=== PATIENT | male | born 1995 | race Caucasian/White ===

== ENCOUNTER 2024-08-02 15:31 | Inpatient (IN) ==
[2024-08-02] MEDS: SODIUM CHLORIDE 0.9% 1,000 ML IV ONE ×2 (16:10→16:59)
[2024-08-02 16:13] LABS: iSTAT Creatinine 3.2 mg/dl (0.6-1.3); iSTAT Hemoglobin 12.6 g/dl (14.0-18.0); iSTAT Ionized Calcium 1.23 mmol/l (1.12-1.32)
[2024-08-02 16:23] LABS: Basophils # (auto) 0.04 K/uL (0.00-0.20); Basophils % (auto) 0.5 %; Eosinophils # (auto) 0.35 K/uL (0.00-0.50); Eosinophils % (auto) 4.7 %; Hematocrit (blood only) 36.7 % (42.0-52.0); Hemoglobin 13.6 g/dl (14.0-18.0); Immature Granulocytes # (auto) 0.03 K/uL (0.01-0.20); Immature Granulocytes % (auto) 0.4 %; Lymphocytes # (auto) 2.33 K/uL (1.20-3.40); Lymphocytes % (auto) 31.4 %; Mean Corpuscular Hemoglobin 28.3 pg (25.0-34.0); Mean Corpuscular Hgb Conc 37.1 g/dL (32.0-36.0); Mean Corpuscular Volume 76.3 fL (80.0-100.0); Mean Platelet Volume 10.3 fL (9.4-12.4); Monocytes # (auto) 0.54 K/uL (0.11-0.59); Monocytes % (auto) 7.3 %; Neutrophils # (auto) 4.13 K/uL (1.40-6.50); Neutrophils % (auto) 55.7 %; Platelet Count 276 K/uL (130-400); RDW Coefficient of Variation 12.9 % (11.5-14.5); RDW Standard Deviation 34.6 fL (36.4-46.3); Red Blood Count 4.81 M/uL (4.70-6.10); White Blood Count 7.42 K/ul (4.8-10.8)
--- NOTE | 2024-08-02 16:29 | Emergency Department Note ---
Impression & Plan Flank Pain, Acute renal failure, Hypoglycemia ED Provider Note CHIEF COMPLAINT: Acute renal failure HISTORY OF PRESENTING ILLNESS: Patient is a 29-year-old male who presents to the emergency department today by referral from his PCP for acute renal failure. He states in February 2024 he was kicked in the left flank area by a horse. He was seen and evaluated here and sent to [place] with significant internal damage as well as multiple rib fractures. A few months ago he had a similar incident occur to the same flank area but had only been told he broke a few ribs again. Today he reports working outside for extended periods of time and lifting heavy in the heat. Patient does report eating a significant meal prior to coming to the ER that included chicken tenders, chips, and soda. He denies any current pain but does report feeling significantly unwell. He denies chest pain, sob, breathing difficulties, abdominal pain, headache, fevers/chills, blood in stool or urine, any recent illness, or any recent travel. REVIEW OF SYSTEMS: See HPI for pertinent positives and pertinent negatives. ALLERGIES: No known allergies MEDICATIONS: Amlodipine, labetalol PAST MEDICAL HISTORY: Hypertension, right kidney injury, GERD PHYSICAL EXAM: VITALS: Vitals are noted on the nurse's note and reviewed by myself. GENERAL: Non toxic, in no acute distress, non-diaphoretic. SKIN: Capillary refill <2 sec. NECK: Supple without nuchal rigidity. HEART: Regular rate and rhythm without murmurs gallops or rubs. LUNGS: Clear to auscultation bilaterally without wheezes, rales or rhonchi. No retractions or accessory muscle use. ABDOMEN: Bilateral flank pain present. Positive bowel sounds x 4. Normal tympanic percussion. Soft, nontender to palpation. No masses or hepatosplenomegaly. Estrada sign negative. No CVA tenderness. No guarding, rigidity, or rebound tenderness. No focal RLQ or LLQ tenderness. MUSCULOSKELETAL: No gross musculoskeletal defects. NEURO: Patient was alert and oriented. No focal neurological deficits. DIFFERENTIAL DIAGNOSIS: Acute kidney failure, chronic renal failure, kidney injury, among others. ED COURSE AND MEDICAL DECISION MAKING: HISTORY FROM INDEPENDENT HISTORIAN: History was provided by the patient and his significant other who is at bedside. MEDICATIONS GIVEN: An IV lock was placed. The patient was bolused with 2 L of normal saline. MONITOR: Continuous front desk monitor: Order was placed for continuous front desk monitor. Patient was placed on the front desk monitor and continuous pulse ox. Patient was noted to be in normal sinus rhythm at an initial rate of 80 bpm per my interpretation. EKG: EKG was interpreted by myself as normal sinus rhythm with T wave abnormality. INTERPRETATION OF LABS: I interpreted the labs with full lab results as below in the lab section of this note. Laboratory results pertinent to the emergent complaint are discussed in the MDM section below. The patient was advised to follow up with their PCP and/or specialist(s) for further outpatient monitoring and management of any abnormal results. INTERPRETATION OF IMAGING: Imaging studies were interpreted by myself and read by radiology as per the imaging section of this note. The patient was advised to follow up with their PCP and/or specialist(s) for further outpatient management of any non-emergent abnormal findings. EXTERNAL RECORDS REVIEWED: Patient's primary care visits CHRONIC MEDICAL/SOCIAL CONDITIONS AFFECTING CARE: No social concerns were identified as barriers to patients care. ESCALATION OF CARE CONSIDERED: I considered admission on this patient and spoke with Dr. Salas. CONSULTATIONS: I had a meaningful discussion about this patient with Dr. Matta who agrees with my assessment and the treatment plan. SUMMARY: I examined the patient for complaints of bilateral flank pain, acute renal failure. A physical exam and history were performed. Nursing notes, EMR, and medication list were personally reviewed. Patient's creatinine 2.76 today yesterday at his PCP was 3.53. There is no leukocytosis or thrombocytopenia. Patient's hemoglobin is 12.6. Glucose was also noted to be 62. Urinalysis was negative for leukocytes, nitrates. CT of the abdomen and pelvis showed no acute findings. The patient was bolused with 2 L of normal saline. The patient was given 3 orange juices and was able to drink them and tolerate them. His repeat blood sugar 1 hour after the initial was 126. I spoke with Dr. Salas for admission to the hospitalist. He was accepted. I discussed this plan with the patient and his significant other who is at bedside and they both verbalized understanding and were in agreement. DIAGNOSIS: Acute renal failure TREATMENT PLAN/DISCHARGE INSTRUCTIONS: Admit to hospitalist services Past Med/Surg History Problem List (Updated 08/02/24 @ 18:02 by Michael Salas MD) HTN (hypertension) Hypoglycemia (Acute) Acute renal failure (Acute) Flank Pain (Acute) Medical History Kidney laceration Spleen laceration Social History Smoking Status: Never smoker Do You Dip or Chew Tobacco: No; Hx Alcohol Use: No Hx Substance Use: No Preferred Language: German Communication Ability: Effective Marketing Specialist Required: No Beliefs That Will Affect Care: None Current Living Situation: Significant Other Feels Safe at Home: Yes Assistive Devices: None Allergies Allergies Allergy/AdvReac Type Severity Reaction Status Date / Time No Known Allergies Allergy Verified 08/01/24 10:54 Home Meds Home Medications Medication Instructions Recorded Confirmed amlodipine 5 mg tablet 5 mg PO DAILY 08/01/24 08/02/24 labetalol 200 mg tablet 800 mg PO BID 08/01/24 08/02/24 Previous Rx's Medication Instructions Recorded omeprazole 20 mg tablet,delayed 20 mg PO DAILY #30 tabs 08/01/24 release ondansetron HCl 4 mg tablet 4 mg PO Q8H PRN nausea and 08/01/24 vomiting #9 tabs Results & Data (ED) Vital Signs Vital Signs - 24 hr 08/02/24 15:37 08/02/24 15:49 08/02/24 16:15 Temperature 36.9 C Temperature Source Temporal Artery Scan Pulse Rate 86 79 Pulse Rate [Apical] 81 Respiratory Rate 18 24 Respiratory Effort / Characteristics Non-Labored Spontaneous Non-Labored Spontaneous Respiratory Depth Normal Normal Respiratory Pattern Regular Blood Pressure 120/68 Blood Pressure [Left Arm] 122/89 Blood Pressure Mean 85 Blood Pressure Mean [Left Arm] 100 Pulse Oximetry 98 97 Oxygen Delivery Method Room Air Room Air Sepsis Recent Fever Within 48 Hours No Sepsis New/Unexplained Change in Mental Status N/A Sepsis Action Taken by Nursing No Action Required 08/02/24 17:02 08/02/24 17:30 Temperature Temperature Source Pulse Rate 63 74 Pulse Rate [Apical] Respiratory Rate 17 15 Respiratory Effort / Characteristics Respiratory Depth Respiratory Pattern Blood Pressure 131/74 140/80 Blood Pressure [Left Arm] Blood Pressure Mean 87 103 Blood Pressure Mean [Left Arm] Pulse Oximetry 97 97 Oxygen Delivery Method Room Air Room Air Sepsis Recent Fever Within 48 Hours Sepsis New/Unexplained Change in Mental Status Sepsis Action Taken by Nursing Laboratory Data 08/02/24 15:53 08/02/24 15:53 Lab Results 08/02/24 08/02/24 08/02/24 Range/Units 15:53 16:01 16:41 WBC 7.42 (4.8-10.8) K/ul RBC 4.81 (4.70-6.10) M/uL Hgb 13.6 L (14.0-18.0) g/dl POC Hgb 12.6 L (14.0-18.0) g/dl Hct 36.7 L (42.0-52.0) % POC Hct 37 L (42-52) % MCV 76.3 L (80.0-100.0) fL MCH 28.3 (25.0-34.0) pg MCHC 37.1 H (32.0-36.0) g/dL RDW Std Deviation 34.6 L (36.4-46.3) fL RDW Coeff of Kayli 12.9 (11.5-14.5) % Plt Count 276 (130-400) K/uL MPV 10.3 (9.4-12.4) fL Immature Gran % (Auto) 0.4 % Neut % (Auto) 55.7 % Lymph % (Auto) 31.4 % Knox % (Auto) 7.3 % Eos % (Auto) 4.7 % Baso % (Auto) 0.5 % Neut # (Auto) 4.13 (1.40-6.50) K/uL Lymph # (Auto) 2.33 (1.20-3.40) K/uL Knox # (Auto) 0.54 (0.11-0.59) K/uL Eos # (Auto) 0.35 (0.00-0.50) K/uL Baso # (Auto) 0.04 (0.00-0.20) K/uL Immature Gran # (Auto) 0.03 (0.01-0.20) K/uL POC Sodium 135 (135-144) mmol/L Sodium 134 L (136-145) mmol/L POC Potassium 4.0 (3.3-5.0) mmol/L Potassium 4.0 (3.5-5.1) mmol/L POC Chloride 103 (101-112) mmol/L Chloride 100 (98-107) mmol/L Carbon Dioxide 24 (21-32) mmol/L POC Total CO2 24 (24-31) mmol/L Anion Gap 10 (3-11) POC Anion Gap 13.0 L (16-25) mmol/L POC BUN 62 H (7-18) mg/dl BUN 64 H (6-23) mg/dl Creatinine 2.76 H D (0.6-1.4) mg/dl POC Creatinine 3.2 H (0.6-1.3) mg/dl Est Cr Clr Drug Dosing 41.1 ml/min eGFR 30.90 BUN/Creatinine Ratio 23.2 H (10-20) Glucose 61 L (70-99(Fasting)) mg/dl POC Glucose (70-99) mg/dl POC Glucose (other) 62 L* (70-99) mg/dl Calcium 9.9 (8.6-10.3) mg/dl POC Ioniz Calcium Gregory 1.23 (1.12-1.32) mmol/l Total Bilirubin 0.5 (0.2-1.0) mg/dl AST 20 (13-39) U/L ALT 17 (7-52) U/L Alkaline Phosphatase 85 (34-104) U/L Total Creatine Kinase 104 (30-223) U/L Troponin I High Sens 3.2 (0-20) pg/ml Total Protein 7.5 (6.0-8.3) gm/dl Albumin 4.5 (3.4-5.0) gm/dl Globulin 3.0 (2.5-4.0) gm/dl Albumin/Globulin Ratio 1.5 (0.9-2) Urine Color Yellow Urine Appearance Clear (Clear) Urine pH 5.0 (4.5-7.5) Ur Specific [place] 1.013 (1.000-1.030) Urine Protein Negative (Negative) Urine Glucose (UA) Negative (Negative) Urine Ketones Trace H (Negative) Urine Blood Negative (Negative) Urine Nitrite Negative (Negative) Urine Bilirubin Negative (Negative) Urine Urobilinogen Negative (Negative) Ur Leukocyte Esterase Negative (Negative) Urine Comment 08/02/24 Range/Units 16:55 WBC (4.8-10.8) K/ul RBC (4.70-6.10) M/uL Hgb (14.0-18.0) g/dl POC Hgb (14.0-18.0) g/dl Hct (42.0-52.0) % POC Hct (42-52) % MCV (80.0-100.0) fL MCH (25.0-34.0) pg MCHC (32.0-36.0) g/dL RDW Std Deviation (36.4-46.3) fL RDW Coeff of Kayli (11.5-14.5) % Plt Count (130-400) K/uL MPV (9.4-12.4) fL Immature Gran % (Auto) % Neut % (Auto) % Lymph % (Auto) % Knox % (Auto) % Eos % (Auto) % Baso % (Auto) % Neut # (Auto) (1.40-6.50) K/uL Lymph # (Auto) (1.20-3.40) K/uL Knox # (Auto) (0.11-0.59) K/uL Eos # (Auto) (0.00-0.50) K/uL Baso # (Auto) (0.00-0.20) K/uL Immature Gran # (Auto) (0.01-0.20) K/uL POC Sodium (135-144) mmol/L Sodium (136-145) mmol/L POC Potassium (3.3-5.0) mmol/L Potassium (3.5-5.1) mmol/L POC Chloride (101-112) mmol/L Chloride (98-107) mmol/L Carbon Dioxide (21-32) mmol/L POC Total CO2 (24-31) mmol/L Anion Gap (3-11) POC Anion Gap (16-25) mmol/L POC BUN (7-18) mg/dl BUN (6-23) mg/dl Creatinine (0.6-1.4) mg/dl POC Creatinine (0.6-1.3) mg/dl Est Cr Clr Drug Dosing ml/min eGFR BUN/Creatinine Ratio (10-20) Glucose (70-99(Fasting)) mg/dl POC Glucose 126 H (70-99) mg/dl POC Glucose (other) (70-99) mg/dl Calcium (8.6-10.3) mg/dl POC Ioniz Calcium Gregory (1.12-1.32) mmol/l Total Bilirubin (0.2-1.0) mg/dl AST (13-39) U/L ALT (7-52) U/L Alkaline Phosphatase (34-104) U/L Total Creatine Kinase (30-223) U/L Troponin I High Sens (0-20) pg/ml Total Protein (6.0-8.3) gm/dl Albumin (3.4-5.0) gm/dl Globulin (2.5-4.0) gm/dl Albumin/Globulin Ratio (0.9-2) Urine Color Urine Appearance (Clear) Urine pH (4.5-7.5) Ur Specific [place] (1.000-1.030) Urine Protein (Negative) Urine Glucose (UA) (Negative) Urine Ketones (Negative) Urine Blood (Negative) Urine Nitrite (Negative) Urine Bilirubin (Negative) Urine Urobilinogen (Negative) Ur Leukocyte Esterase (Negative) Urine Comment Administered Medications Sodium Chloride (Nss) 1,000 mls @ 80 mls/hr IV .[id number] OTILIA Stop: 08/05/24 19:35 Last Admin: 08/02/24 19:49 Dose: 80 mls/hr Documented By: MINAL Discontinued Medications Sodium Chloride (Nss) 1,000 mls @ 999 mls/hr IV .Q1H1M ONE Stop: 08/02/24 16:57 Last Infusion: 08/02/24 17:11 Dose: Infused Documented By: Admin: 08/02/24 16:10 Dose: 999 mls/hr Documented By: CHRISTOPHER Sodium Chloride (Nss) 1,000 mls @ 999 mls/hr IV .Q1H1M ONE Stop: 08/02/24 17:31 Last Infusion: 08/02/24 18:01 Dose: Infused Documented By: Admin: 08/02/24 16:59 Dose: 999 mls/hr Documented By: CHRISTOPHER Imaging Data Radiologist's Impression: Abdomen/Pelvis CT 08/02/24 16:15 EXAMINATION: CT of the abdomen and pelvis performed without contrast TECHNIQUE: Helical CT images from the lung bases through the symphysis pubis were obtained without contrast. Coronal and sagittal reformatted images were generated at a workstation for further assessment. Dose reduction techniques were achieved by using automatic exposure control and/or adjustment of mA and/or kV according to patient size and/or use of iterative reconstruction technique. COMPARISON: 04/05/2024 HISTORY: Abdominal pain FINDINGS: Lower chest: No consolidation. No pleural effusion or pneumothorax. Liver: No suspicious liver lesions. Gallbladder: No gallstones. No evidence of acute cholecystitis. Spleen: Normal size. Pancreas: No suspicious pancreatic lesions. The pancreatic duct is not dilated. Adrenal glands: No adrenal nodules. Kidneys: No hydronephrosis or obstructing renal stones. Bladder / Pelvic organs: Unremarkable. Bowel: No bowel obstruction. No abnormal bowel wall thickening. The appendix is unremarkable. Mild to moderate colonic stool burden. Lymph nodes: No retroperitoneal, mesenteric, or pelvic lymphadenopathy. Peritoneum / Retroperitoneum: No free fluid or air within the abdomen. Vessels: No infrarenal aortic aneurysm. Bones and soft tissues: No suspicious lesion in the bones. Healing callus of a left rib 11 fracture seen on prior. IMPRESSION: NoAcute intra-abdominal finding. Electronically signed by Reji Cobb 08-02-2024 4:49 PM Discharge Plan Visit Data Chief Complaint: Flank Pain Stated Complaint: ACUTE KIDNEY FAILURE ED Provider: Garth Matta ED Midlevel Provider: Melissa Abernathy Discharge Problem: Flank Pain, Acute renal failure, Hypoglycemia Patient Disposition: Admitted As Inpatient Condition: Good Discharge Instructions Interventions: ED Discharge Assessment Last Done: 08/02/24 19:28 Discharge Problem: Acute renal failure Qualifiers: Acute renal failure type: unspecified Qualified Code(s): N17.9 - Acute kidney failure, unspecified
[2024-08-02 16:49] LABS: Appearance Urine Clear (Clear); Bilirubin Urine Negative (Negative); Blood Urine Negative (Negative); Color Urine Yellow; Glucose Urine UA Negative (Negative); Ketones Urine Trace (Negative); Leukocyte Esterase Urine Negative (Negative); Nitrite Urine Negative (Negative); Protein Urine Negative (Negative); Specific Gravity Urine 1.013 (1.000-1.030); Urobilinogen Urine Negative (Negative)
[2024-08-02 16:49] LABS: Albumin Globulin Ratio 1.5 (0.9-2); Albumin Level 4.5 gm/dl (3.4-5.0); BUN Creatinine Ratio 23.2 (10-20); Bilirubin,Total 0.5 mg/dl (0.2-1.0); Calcium 9.9 mg/dl (8.6-10.3); Creatinine Clr Calc Pharmacy 41.1 ml/min; Total Protein 7.5 gm/dl (6.0-8.3)
--- NOTE | 2024-08-02 16:49 | CT Scan Report ---
EXAMINATION: CT of the abdomen and pelvis performed without contrast TECHNIQUE: Helical CT images from the lung bases through the symphysis pubis were obtained without contrast. Coronal and sagittal reformatted images were generated at a workstation for further assessment. Dose reduction techniques were achieved by using automatic exposure control and/or adjustment of mA and/or kV according to patient size and/or use of iterative reconstruction technique. COMPARISON: 04/05/2024 HISTORY: Abdominal pain FINDINGS: Lower chest: No consolidation. No pleural effusion or pneumothorax. Liver: No suspicious liver lesions. Gallbladder: No gallstones. No evidence of acute cholecystitis. Spleen: Normal size. Pancreas: No suspicious pancreatic lesions. The pancreatic duct is not dilated. Adrenal glands: No adrenal nodules. Kidneys: No hydronephrosis or obstructing renal stones. Bladder / Pelvic organs: Unremarkable. Bowel: No bowel obstruction. No abnormal bowel wall thickening. The appendix is unremarkable. Mild to moderate colonic stool burden. Lymph nodes: No retroperitoneal, mesenteric, or pelvic lymphadenopathy. Peritoneum / Retroperitoneum: No free fluid or air within the abdomen. Vessels: No infrarenal aortic aneurysm. Bones and soft tissues: No suspicious lesion in the bones. Healing callus of a left rib 11 fracture seen on prior. IMPRESSION: NoAcute intra-abdominal finding. Electronically signed by Reji Cobb 08-02-2024 4:49 PM
[2024-08-02 16:55] LABS: Troponin I High Sensitivity 3.2 pg/ml (0-20)
--- NOTE | 2024-08-02 18:06 | History & Physical Report ---
Date of Service August 02, 2024 Assessment & Plan (1) Acute renal failure: Plan: Most likely prerenal due to dehydration. CT scan of the abdomen pelvis did not show any evidence of obstruction Patient has been feeling unwell over the past few days, has been eating poorly including poorly Presented to his PCP initially when I asked him to come to the hospital following up, lab Yesterday, creatinine was 3.53, improved to 2.76 on presentation today Will continue gentle hydration IV normal saline 80 cc/h Check BMP If no Improvement in renal function, may consider nephrology consult (2) HTN (hypertension): Plan: Blood pressures under good control, on amlodipine and labetalol at home Will hold (3) Hypoglycemia: Plan: Was found to be hypoglycemic on arrival, says he has not been eating however he was treated per hypoglycemia protocol will recheck glucose Plan Admit to [facility] Full code History of Present Illness Chief Complaint: abnormal lab Primary Care Provider: Rhonda JacksonDO Is a 29-year-old history of hypertension who presents to the hospital today on account of an abnormal lab. According to the patient, he has been feeling unwell over the past few days so he went to his PCP, who creatinine was elevated. He said over the past several days, he has been feeling very tired nauseous basically a general feeling of malaise. Upon arrival Emergency Department serum creatinine was 2.76, it was 3.53 yesterday when his PCP checked it. CT scan of the abdomen pelvis did not show any evidence of obstruction. Of note patient said he had acute kidney injury sometime in March following a traumatic kick by his horse which led to injury to his flank with some broken ribs. During that time, he spent some time at [place] where he was treated. Here in emergency department, he received some IV fluids and will be admitted to the hospital Allergies Allergy/AdvReac Type Severity Reaction Status Date / Time No Known Allergies Allergy Verified 08/01/24 10:54 Home Medications Medication Instructions Recorded Confirmed Type amlodipine 5 mg tablet 5 mg PO DAILY 08/01/24 08/02/24 History labetalol 200 mg tablet 800 mg PO BID 08/01/24 08/02/24 History omeprazole 20 mg tablet,delayed 20 mg PO DAILY #30 tabs 08/01/24 08/02/24 Rx release ondansetron HCl 4 mg tablet 4 mg PO Q8H PRN nausea and 08/01/24 08/02/24 Rx vomiting #9 tabs Past Med/Surg History Problem List (Updated 08/02/24 @ 18:02 by Michael Salas MD) HTN (hypertension) Hypoglycemia (Acute) Acute renal failure (Acute) Flank Pain (Acute) Medical History Kidney laceration Spleen laceration Social History Smoking Status: Never smoker Preferred Language: Nepali Feels Safe at Home: Yes Review of Systems Review of Systems: All systems reviewed are negative, apart from the ones contained in the history. Physical Exam Physical Exam: The patient is awake, alert and oriented 3, well developed and well nourished, normocephalic and atraumatic, lying in bed and in no acute distress. HEENT--PERRL, EOMI, mucous membranes and oropharynx mildly dry Neck--supple. No JVD. No bruits. Thyroid normal, trachea midline, no adenopathy. Heart--normal S1 and S2. No murmurs, rubs or gallops. Lungs--clear bilaterally, no respiratory distress, no accessory muscle use. Abdomen--normal bowel sounds and soft. Extremities--no cyanosis or clubbing. No edema. Dermatologic--normal skin turgor, normal color, no abnormal lymph nodes, no rash . Neurologic--cranial nerves II through XII grossly intact. Rheumatologic--normal range of motion. Psychiatric--normal affect. Results & Data Results & Data Vital Signs (Past 12 Hours) Vital Signs Temp Pulse Pulse Resp BP BP Pulse Ox 08/02/24 16:15 79 08/02/24 15:49 81 24 122/89 97 08/02/24 15:37 98.4 F 86 18 120/68 98 O2 Del Method 08/02/24 16:15 08/02/24 15:49 Room Air 08/02/24 15:37 Room Air PG Care Time/CCT Total # of Minutes Spent Total Time Spent with Patient: Total time spent is greater than 50% in coordination of care (as documented) at patient's floor/unit and/or counseling patient: Coding Level of Care Code 29866 INT INP/OBS CARE 75MIN Diagnoses Acute renal failure N17.9 Acute renal failure type: unspecified HTN (hypertension) I10 Hypoglycemia E16.2 Time Spent (min) 75 (1) Acute renal failure Acute renal failure type: unspecified Qualified Code(s): N17.9 - Acute kidney failure, unspecified
[2024-08-02] MEDS: SODIUM CHLORIDE 0.9% 1,000 ML IV SCH (19:49)
[2024-08-03 08:15] LABS: BUN Creatinine Ratio 26.3 (10-20); Creatinine Clr Calc Pharmacy 68.3 ml/min; Potassium 4.9 mmol/L (3.5-5.1)
[2024-08-03] MEDS: D5W AND NSS 1,000 ML IV SCH (10:07)
--- NOTE | 2024-08-03 11:50 | Hospitalist Progress Note ---
Date of Service August 03, 2024 Assessment & Plan (1) Viral illness: Plan: Probable cause of anorexia and volume depletion. Improved. Supportive care (2) Volume depletion: Plan: Present on admission. Being corrected with IV fluids (3) Acute kidney injury: Plan: Present on admission. Improving with IV fluids. Monitor intake and output. Serial labs (4) HTN (hypertension): Plan: amlodipine and labetalol held on admission. Currently stable. Will resume medications at discharge (5) Hypoglycemia: Plan: Present on admission. Now resolved. D5W added to IV fluids. Serial labs Plan Anticipate discharge to home tomorrow, August 04 Admission and Anticipated Discharge Date Admission Date: August 02, 2024 Subjective Alert and oriented. He states he feels much better. Creatinine has improved from 3.5 down to 1.6. Serum osmolarity mildly elevated at 306. He remains on intravenous fluids at 80 cc/h. Glucose 106 this morning. Dextrose added to IV fluids to prevent hypoglycemia. Probably home tomorrowAugust 04 Review of Systems 2 Review of Systems: Constitutionalno fever or chills ENTno blurred vision, no double vision, no epistaxis, no sore throat Respiratoryno cough, no wheezing, no shortness of breath Cardiacno palpitations, no chest pain, no syncope Jonathon nausea, vomiting, diarrhea, melena, hematochezia GUno urinary retention, no urinary incontinence, no dysuria, no hematuria Musculoskeletalno joint pain, no muscle tenderness Skinno bruising, no rashes, no pruritus Neurono isolated weakness, no paresthesia, no weakness Psychno depression, no anxiety Physical Exam 2 Physical Exam: General-alert and oriented x3, no fever, no chills HEENT-head atraumatic and normocephalic, pupils equal and reactive to light, extraocular muscles intact Neck-no lymphadenopathy or thyromegaly, trachea midline Chest-clear to auscultation. No rales, wheezing or rhonchi Cardiac-regular rate and rhythm, normal S1 and S2 Abdomen-normal bowel sounds, no hepatosplenomegaly Extremities-no cyanosis, clubbing, or edema Neuro-cranial nerves II through XII intact, motor and sensory function within normal limits, strength symmetrical, no focal deficits Psych-normal affect, normal mood Results & Data Results & Data Vital Signs (Past 12 Hours) Vital Signs Temp Pulse Resp BP Pulse Ox O2 Del Method 08/03/24 07:18 36.4 C L 64 18 126/59 L 99 Room Air Laboratory Results 08/02/24 15:53 08/03/24 07:32 PG Care Time/CCT Total # of Minutes Spent Total Time Spent with Patient: Total time spent is greater than 50% in coordination of care (as documented) at patient's floor/unit and/or counseling patient: Coding Level of Care Code 76053 SUB INP/OBS CARE 3/50MIN Diagnoses Viral illness B34.9 Volume depletion E86.9 Acute kidney injury N17.9 HTN (hypertension) I10 Hypoglycemia E16.2
--- NOTE | 2024-08-03 15:28 | Electrocardiogram Report ---
Test Reason : Blood Pressure : */* mmHG Vent. Rate : 69 BPM Atrial Rate : 69 BPM P-R Int : 152 ms QRS Dur : 116 ms QT Int : 402 ms P-R-T Axes : 54 47 4 degrees QTcB Int : 430 ms Normal sinus rhythm Incomplete right bundle branch block T wave abnormality, consider inferior ischemia Abnormal ECG When compared with ECG of 05-Apr-2024 10:21, No significant change was found Confirmed by Micah Ballesteros ([id number]) on 08/03/2024 3:27:56 PM Referred By: Rhonda Jackson Confirmed By: Micah Ballesteros
[2024-08-03] MEDS: amLODIPine BESYLATE 5 MG TAB PO SCH (23:13)
[2024-08-04 07:33] VITALS: BP 151/93; PULSE 66; RESP 16; TEMP 97.7; O2SAT 99
[2024-08-04 09:41] LABS: BUN Creatinine Ratio 20.8 (10-20); Calcium 9.2 mg/dl (8.6-10.3); Creatinine Clr Calc Pharmacy 79.2 ml/min; Potassium 4.8 mmol/L (3.5-5.1)
--- NOTE | 2024-08-04 10:02 | Discharge Summary ---
Discharge Summary Date of Service August 04, 2024 Principal Dx & Hospital Course #1 = Principal Diagnosis (1) Viral illness: (2) Volume depletion: (3) Acute kidney injury: (4) HTN (hypertension): (5) Hypoglycemia: Plan This is a 29 year old gentleman with past medical history of hypertension who presented to the ED on 08/04 for abnormal outpatient labs. #Acute kidney injury secondary to dehydration outpatient --> had not been feeling well & experiencing n/v Creatinine on admission 2.76 --> now 1.40 s/p IVF Tolerating regular diet. Encourage continued aggressive hydration for 24-48 hours at home w/ PO intake. #Hypoglycemia cause uncertain, but on admission blood glucose ~60 Dextrose was added to IVF during hospital stay Recommend checking BG outpatient & follow up w/ PCP for further workup #HTN medications resumed on discharge discharged to home 08/04 Admission HPI Per Admitting Provider Is a 29-year-old history of hypertension who presents to the hospital today on account of an abnormal lab. According to the patient, he has been feeling unwell over the past few days so he went to his PCP, who creatinine was elevated. He said over the past several days, he has been feeling very tired nauseous basically a general feeling of malaise. Upon arrival Emergency Department serum creatinine was 2.76, it was 3.53 yesterday when his PCP checked it. CT scan of the abdomen pelvis did not show any evidence of obstruction. Of note patient said he had acute kidney injury sometime in March following a traumatic kick by his horse which led to injury to his flank with some broken ribs. During that time, he spent some time at [place] where he was treated. Here in emergency department, he received some IV fluids and will be admitted to the hospital Discharge Exam General: no acute distress; non-toxic appearing; well-nourished; cooperative HEENT: normocephalic, atraumatic; no scleral icterus; PERRLA w/ EOMs intact; vision and hearing grossly intact Neck: trachea midline Skin: warm, dry without signs of tenting; no cyanosis; no rashes, bruising, lesions, or erythema noted CV: chest wall NTP; RRR; S1/S2 normal; no murmurs/rubs/gallops; pulses intact and symmetric at radial, DP, and PT Lungs: no acute respiratory distress; symmetrical chest wall expansion MSK: no edema noted in the LEs b/l, nonerythematous Neuro: A&Ox3; normal mood and affect; fluent speech; no focal deficits Discharge Plan Discharge Items Patient Disposition: Home - Self-Care Reason For Visit: ROBB Discharge Diagnosis: ROBB Condition on Discharge: Good Activity: Resume your previous activity Non-emergency contact: Primary Care Provider Call non-emergency contact if: you have any medication questions and your symptoms worsen Follow-up/Referrals: Rhonda Jackson, [Primary Care Provider] - 08/09/24 10:30 am Diet: Regular Addtl Attending Provider Instructions: Mr. Frausto, You were recently hospitalized after outpatient lab work showed elevated kidney numbers. You have been given IV fluids with correction. Please see recommendations below regarding your discharge. Please make sure you are drinking plenty of fluids to continue to rehydrate your kidneys for the next 24-48 hours. Please follow up very closely with your PCP for continued monitoring & repeat lab work. You may resume the remainder of your outpatient medications. If you develop any chest pain, shortness of breath, or dizziness please report back to the ED for further care. Best of luck! Maria T Lala PA-C Pending Studies at Discharge: No Stand-Alone Forms: My [facility] [place], Smoking Cessation Medications and DC Order Prescriptions: Continued amlodipine 5 mg tablet 5 mg PO DAILY labetalol 200 mg tablet 800 mg PO BID ondansetron HCl 4 mg tablet 4 mg PO Q8H PRN (Reason: nausea and vomiting) Qty: 9 0RF omeprazole 20 mg tablet,delayed release (DR/EC) 20 mg PO DAILY Qty: 30 0RF Discharge Orders: Discharge Order (Routine); Ordered 08/04/24 Ordered By: Maria T Lala Admission Data Admit Date/Time: 08/02/24 17:42 Attending Provider: Errol Parry Admit Provider: Michael Salas Primary Care Provider: Rhonda Jackson Other Providers: Michael Salas Other Interventions: Discharge Summary Assessment (RN) Last Done: 08/04/24 10:21 Hospital Stay Data Consultations 08/02/24 17:45 ED Decision to Admit Stat Diagnostic Imagining Performed 08/02/24 16:15 CT abd pelvis wo con Stat Pending Results Patient Have Any Pending Studies at Discharge: No Discharge Instructions Given to Patient (Per Discharging Provider) Mr. Frausto, You were recently hospitalized after outpatient lab work showed elevated kidney numbers. You have been given IV fluids with correction. Please see recommendations below regarding your discharge. Please make sure you are drinking plenty of fluids to continue to rehydrate your kidneys for the next 24-48 hours. Please follow up very closely with your PCP for continued monitoring & repeat lab work. You may resume the remainder of your outpatient medications. If you develop any chest pain, shortness of breath, or dizziness please report back to the ED for further care. Best of luck! Maria T Lala PA-C Total Time Total Time Spent Total Time Spent (In Minutes): 35 Total Time Includes: Examination of the Patient, Discharge Planning and Medication Reconciliation Coding Level of Care Code 11232 INP/OBS DISCH >30 MIN Diagnoses Viral illness B34.9 Volume depletion E86.9 Acute kidney injury N17.9 HTN (hypertension) I10 Hypoglycemia E16.2
== END 2024-08-04 11:07 | disposition home or self-care (01) | DRG 866 ==
LOC: SUATTDRO → ED 15:31 → SUATTDRO 17:42 → 3N 17:42

== ENCOUNTER 2024-08-10 20:18 | Observation (INO) ==
[2024-08-10 21:02] LABS: POC Urine Bilirubin Negative (Negative); POC Urine Blood Negative (Negative); POC Urine Glucose Normal (Normal); POC Urine Ketones Negative (Negative); POC Urine Leukocytes Negative (Negative); POC Urine Nitrite Negative (Negative); POC Urine Protein Negative (Negative); POC Urine Urobilinogen Normal (Normal); POC Urine pH 7 (4.5-7.5)
[2024-08-10 21:06] LABS: Appearance Urine Clear (Clear); Glucose Urine UA Negative (Negative)
[2024-08-10 21:25] LABS: Alanine Aminotransferase 26.0 U/L (7-52); Albumin Globulin Ratio 1.5 (0.9-2); Alkaline Phosphatase 90.0 U/L (34-104); Anion Gap 8.0 (3-11); Bilirubin,Total 0.7 mg/dl (0.2-1.0); Blood Urea Nitrogen 30.0 mg/dl (6-23); Calcium 9.6 mg/dl (8.6-10.3); Carbon Dioxide 27.0 mmol/L (21-32); Chloride 94.0 mmol/L (98-107); Creatinine Clr Calc Pharmacy 54.8 ml/min; Globulin 2.9 gm/dl (2.5-4.0); Glucose 93.0 mg/dl (70-99(Fasting)); Potassium 5.2 mmol/L (3.5-5.1); Sodium 129.0 mmol/L (136-145); Total Protein 7.3 gm/dl (6.0-8.3)
[2024-08-10 21:30] LABS: Hematocrit (blood only) 36.9 % (42.0-52.0); Hemoglobin 13.1 g/dl (14.0-18.0); Immature Granulocytes # (auto) 0.06 K/uL (0.01-0.20); Immature Granulocytes % (auto) 0.7 %; Mean Corpuscular Hemoglobin 27.9 pg (25.0-34.0); Mean Corpuscular Volume 78.7 fL (80.0-100.0); Platelet Count 276 K/uL (130-400); RDW Standard Deviation 36.3 fL (36.4-46.3); Red Blood Count 4.69 M/uL (4.70-6.10); White Blood Count 9.22 K/ul (4.8-10.8)
--- NOTE | 2024-08-10 22:33 | History & Physical Report ---
Date of Service August 10, 2024 Assessment & Plan (1) Acute kidney injury: (2) Flank Pain: (3) Hyperkalemia: (4) Hyponatremia: Plan Patient is a 29-year-old male with past medical history of hypertension and recent admission for ROBB from 08/02 to 08/04 suspected to be secondary to dehyd ration. Patient was referred by his PCP after he had outpatient labs yesterday which revealed worsening renal function, creatinine increased from 1.44-2.29. Patient is also complaining of bilateral flank pain, L>R. He is being admitted for an ROBB. #mild rhabdomyolysis/ROBB/Hyperkalemia/hyponatremia - Cr increased 1.44 to 2.29, BUN 30, K+ 5.2, Na 129. UA appears noninfectious. 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 - renal/bladder ultrasound ordered with flank pain Urine sodium and creatinine ordered to calculate fena - received 2L NSS bolus in ED, continue fluid resuscitation with NSS at 200 mL/hour - promote oral hydration Strict I's and O's Potassium 5.2, anticipate to improve with IVF above, monitor with a.m. labs NA 129, NSS as above - magnesium level ordered - Antistreptolysin level sent, follow up with pcp Trend BMP and CK PCP placed referral to Dr. Lomeli, catcher helper, in outpatient setting #HTNcontinue amlodipine and labetalol #GERDcontinue PPI VTE ppx: SCDs, low risk and able to ambulate Dispo: MedSurg obs, patient hopeful to DC home 08/11 if renal function improves Admission and Anticipated Discharge Date Admission Date: 08/10/24 History of Present Illness Chief Complaint: flank pain Primary Care Provider: Rhonda Jackson DO Patient is a 29-year-old male with past medical history of hypertension and recent admission for ROBB from 08/02 to 08/04 suspected to be secondary to dehydration. Patient was referred by his PCP after he had outpatient labs yesterday which revealed worsening renal function, creatinine increased from 1.44-2.29. Patient is also complaining of bilateral flank pain, L>R. He is being admitted for an ROBB. Patient seen at bedside with his girlfriend present. He stated he has been relatively asymptomatic and was sent in by his PCP, however upon further questioning patient has had bilateral flank pain today that is constant and burning, L>R. He stated the pain is a 3/10 at its worst. He denies any dysuria, difficulty urinating, hematuria, decrease in urinary output today. He denies any history of previous nephrolithiasis. He stated he has been trying to drink a lot of fluids at home after his last ROBB and denies any recent nausea, vomiting, diarrhea, or fevers. He has been taking his home medications and took them today. He wishes to be full code. Patient reevaluated at bedside after CK returned at 549. 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 He has tried to drink lots of fluids and Gatorade. Allergies Allergy/AdvReac Type Severity Reaction Status Date / Time No Known Allergies Allergy Verified 08/09/24 10:27 Home Medications Medication Instructions Recorded Confirmed Type amlodipine 5 mg tablet 5 mg PO DAILY 08/01/24 08/10/24 History labetalol 200 mg tablet 800 mg PO BID 08/01/24 08/10/24 History omeprazole 20 mg tablet,delayed 20 mg PO DAILY #30 tabs 08/01/24 08/10/24 Rx release ondansetron HCl 4 mg tablet 4 mg PO Q8H PRN nausea and 08/01/24 08/10/24 Rx vomiting #9 tabs Past Med/Surg History Problem List (Updated 08/10/24 @ 22:57 by Giovanna Nj PA-C) Hyponatremia Hyperkalemia Gallbladder sludge Acute kidney injury Volume depletion Viral illness HTN (hypertension) Hypoglycemia (Acute) Acute renal failure (Acute) Flank Pain (Acute) Medical History (Updated 08/10/24 @ 22:57 by Giovanna Nj PA-C) Kidney laceration Spleen laceration Social History Smoking Status: Never smoker Do You Dip or Chew Tobacco: No; Hx Alcohol Use: No Hx Substance Use: No Preferred Language: Danish Communication Ability: Effective Plastics Nurse Required: No Beliefs That Will Affect Care: None Current Living Situation: Significant Other Feels Safe at Home: Yes Assistive Devices: None Review of Systems Review of Systems: See HPI Physical Exam Physical Exam: The patient is awake, alert and oriented 3, well developed and well nourished, normocephalic and atraumatic, in no acute distress. Non-toxic appearing. HEENT- EOMI, mucous membranes moist. Hearing grossly intact. Heart-normal S1 and S2. No murmurs, rubs or gallops. Lungs-clear bilaterally, no respiratory distress, no accessory muscle use. Abdomen-normal bowel sounds and soft. No ascites noted. Left CVA tenderness. Extremities- no clubbing, cyanosis, or edema. Rheumatologic-normal range of motion. Psychiatric-normal affect. Results & Data Results & Data Vital Signs (Past 12 Hours) Vital Signs Temp Pulse Pulse Resp BP BP Pulse Ox 08/10/24 21:44 60 18 147/85 H 97 08/10/24 21:30 66 08/10/24 20:32 36.5 C 69 16 136/76 97 O2 Del Method 08/10/24 21:44 Room Air 08/10/24 21:30 08/10/24 20:32 Room Air Laboratory Results reviewed CBC, CMP, UA Medications Administered ED2L NSS bolus Code Status & VTE Plan Code Status full code VTE Prophylaxis Plan VTE Prophylaxis will be ordered: Yes Supervising Physician Co-Signing Physician Notes Patient seen and examined, chart reviewed, case discussed with Giovanna Nj PA-C and I agree with the assessment and plan as above except as otherwise noted Labs and images reviewed 29-year-old male with recent ROBB suspect due to dehydration referred back due to again worsening renal function. Patient also has bilateral intermittent right flank pain and evidence of rhabdomyolysis. He was working in the sun and is volume contracted. Had been lifting/pouring concrete bags throughout the day. Suspect prerenal. Mild rhabdo from exertion. Given flank pain will obtain renal/bladder ultrasound to rule out obstruction. CT independently reviewed, no evidence of nephrolithiasis on recent scan. Agree with hydration and management as noted. PG Care Time/CCT Total # of Minutes Spent Total Time Spent with Patient: Total time spent is greater than 50% in coordination of care (as documented) at patient's floor/unit and/or counseling patient: Coding Level of Care Code 80849 INT INP/OBS CARE 3/75MIN Diagnoses Acute kidney injury N17.9 Flank Pain R10.9 Hyperkalemia E87.5 Hyponatremia E87.1
[2024-08-10 22:34] LABS: Creatine Kinase 549.0 U/L (30-223)
[2024-08-10] MEDS: SODIUM CHLORIDE 0.9% 1,000 ML IV SCH (22:45)
--- NOTE | 2024-08-10 22:48 | Emergency Department Note ---
History of Present Illness General Chief complaint: Flank Pain Stated complaint: KIDNEY FAILURE Time Seen by Provider: 08/10/24 22:07 History of Present Illness This is a 29-year-old male presenting to the emergency department through triage for evaluation of acute kidney injury. The patient was seen and evaluated in this department about a week ago where his creatinine was over 3.5. This was new for the patient and he admitted for several days, with response to normal saline. Patient has been following closely with his outpatient family doctor. His discharge creatinine was around 1.4, and now he is trending above 2. Patient has not had fevers or chills. He rates his discomfort a 4/10. Home Medications Medication Instructions Recorded Confirmed Type amlodipine 5 mg tablet 5 mg PO DAILY 08/01/24 08/10/24 History labetalol 200 mg tablet 800 mg PO BID 08/01/24 08/10/24 History omeprazole 20 mg tablet,delayed 20 mg PO DAILY #30 tabs 08/01/24 08/10/24 Rx release ondansetron HCl 4 mg tablet 4 mg PO Q8H PRN nausea and 08/01/24 08/10/24 Rx vomiting #9 tabs Allergies Allergy/AdvReac Type Severity Reaction Status Date / Time No Known Allergies Allergy Verified 08/09/24 10:27 Past Med/Surg History Problem List (Updated 08/11/24 @ 03:44 by Honorio Kirby PA-C) Hyponatremia Hyperkalemia Gallbladder sludge Acute kidney injury (Acute) Volume depletion Viral illness HTN (hypertension) Hypoglycemia (Acute) Acute renal failure (Acute) Flank Pain (Acute) Medical History (Updated 08/11/24 @ 03:44 by Honorio Kirby PA-C) Kidney laceration Spleen laceration Social History Smoking Status: Never smoker Do You Dip or Chew Tobacco: No; Hx Alcohol Use: No Hx Substance Use: No Preferred Language: Malay Communication Ability: Effective It Application Development Manager Required: No Beliefs That Will Affect Care: None Current Living Situation: Significant Other Feels Safe at Home: Yes Assistive Devices: None Review of Systems A total of 10 systems reviewed and were otherwise negative Physical Exam Vital Signs Vital Signs - 24 hr 08/10/24 20:32 08/10/24 21:30 08/10/24 21:44 Temperature 36.5 C Temperature Source Temporal Artery Scan Pulse Rate 69 66 Pulse Rate [Apical] 60 Pulse Rhythm [Apical] Regular Pulse Strength [Apical] Normal Respiratory Rate 16 18 Respiratory Effort / Characteristics Non-Labored Non-Labored Spontaneous Respiratory Depth Normal Normal Respiratory Pattern Blood Pressure 136/76 Blood Pressure [Right Arm] 147/85 H Blood Pressure Mean 96 Blood Pressure Mean [Right Arm] 105 Blood Pressure Position [Right Arm] Semi-fowlers Pulse Oximetry 97 97 Oxygen Delivery Method Room Air Room Air Sepsis Recent Fever Within 48 Hours No Sepsis New/Unexplained Change in Mental Status No Sepsis Action Taken by Nursing No Action Required 08/10/24 23:00 08/11/24 01:00 08/11/24 01:28 Temperature Temperature Source Pulse Rate 59 L Pulse Rate [Apical] 78 84 Pulse Rhythm [Apical] Regular Regular Pulse Strength [Apical] Normal Normal Respiratory Rate 18 18 Respiratory Effort / Characteristics Non-Labored Spontaneous Non-Labored Spontaneous Respiratory Depth Normal Normal Respiratory Pattern Regular Regular Blood Pressure Blood Pressure [Right Arm] 134/84 137/91 Blood Pressure Mean Blood Pressure Mean [Right Arm] 100 106 Blood Pressure Position [Right Arm] Semi-fowlers Semi-fowlers Pulse Oximetry 97 98 Oxygen Delivery Method Room Air Room Air Sepsis Recent Fever Within 48 Hours Sepsis New/Unexplained Change in Mental Status Sepsis Action Taken by Nursing 08/11/24 03:00 Temperature Temperature Source Pulse Rate Pulse Rate [Apical] 77 Pulse Rhythm [Apical] Regular Pulse Strength [Apical] Normal Respiratory Rate 16 Respiratory Effort / Characteristics Non-Labored Spontaneous Respiratory Depth Normal Respiratory Pattern Regular Blood Pressure Blood Pressure [Right Arm] 124/65 Blood Pressure Mean Blood Pressure Mean [Right Arm] 84 Blood Pressure Position [Right Arm] Lying Pulse Oximetry 97 Oxygen Delivery Method Room Air Sepsis Recent Fever Within 48 Hours Sepsis New/Unexplained Change in Mental Status Sepsis Action Taken by Nursing VITALS: Vitals are noted on the nurse's note and reviewed by myself. Vital signs stable. GENERAL: Well-developed, well-nourished, white male, who is in no acute distress and resting comfortably. Patient is cooperative with the examination. HEAD: Normocephalic atraumatic. MOUTH: Mucous membranes moist. Tonsils are not enlarged. Pharynx without erythema, blood, or exudate. Uvula midline. Airway patent. NECK: Supple without nuchal rigidity. No lymphadenopathy. No thyromegaly. Cervical spine is nontender. HEART: Regular rate and rhythm without murmurs gallops or rubs. LUNGS: Clear to auscultation bilaterally without wheezes, rales or rhonchi. No retractions or accessory muscle use. ABDOMEN: Positive normal bowel sounds x 4. Soft, nontender, without masses or organomegaly. No guarding or rebound tenderness. MUSCULOSKELETAL: No muscle atrophy, erythema, or edema noted. Full range of motion in all extremities. Course Administered Medications Discontinued Medications Sodium Chloride (Nss) 1,000 mls @ 999 mls/hr IV .Q1H1M OTILIA Stop: 08/11/24 00:15 Last Infusion: 08/11/24 02:17 Dose: Infused Documented By: Admin: 08/10/24 23:25 Dose: 999 mls/hr Documented By: Infusion: 08/10/24 23:25 Dose: Infused Documented By: Admin: 08/10/24 22:45 Dose: 999 mls/hr Documented By: IDD Medical Decision Making Differential Diagnosis Differential diagnosis: Etiologies such as ROBB, dehydration, rhabdo, shingles, pyelonephritis/UTI, renal colic, appendicitis, diverticulitis, mesenteric ischemia, torsion, aortic pathology, infections, inflammatory bowel disease, bowel obstruction, PUD, biliary pathology, as well as others were entertained. Laboratory Data 08/10/24 20:49 08/10/24 20:49 Lab Results 08/10/24 08/10/24 Range/Units 20:49 20:59 WBC 9.22 (4.8-10.8) K/ul RBC 4.69 L (4.70-6.10) M/uL Hgb 13.1 L (14.0-18.0) g/dl Hct 36.9 L (42.0-52.0) % MCV 78.7 L (80.0-100.0) fL MCH 27.9 (25.0-34.0) pg MCHC 35.5 (32.0-36.0) g/dL RDW Std Deviation 36.3 L (36.4-46.3) fL RDW Coeff of Kayli 13.0 (11.5-14.5) % Plt Count 276 (130-400) K/uL MPV 10.1 (9.4-12.4) fL Immature Gran % (Auto) 0.7 % Neut % (Auto) 58.0 % Lymph % (Auto) 28.4 % [place] % (Auto) 8.5 % Eos % (Auto) 3.7 % Baso % (Auto) 0.7 % Neut # (Auto) 5.36 (1.40-6.50) K/uL Lymph # (Auto) 2.62 (1.20-3.40) K/uL [place] # (Auto) 0.78 H (0.11-0.59) K/uL Eos # (Auto) 0.34 (0.00-0.50) K/uL Baso # (Auto) 0.06 (0.00-0.20) K/uL Immature Gran # (Auto) 0.06 (0.01-0.20) K/uL Sodium 129 L (136-145) mmol/L Potassium 5.2 H (3.5-5.1) mmol/L Chloride 94 L (98-107) mmol/L Carbon Dioxide 27 (21-32) mmol/L Anion Gap 8 (3-11) BUN 30 H (6-23) mg/dl Creatinine 2.05 H (0.6-1.4) mg/dl Est Cr Clr Drug Dosing 54.8 ml/min eGFR 44.15 BUN/Creatinine Ratio 14.6 (10-20) Glucose 93 (70-99(Fasting)) mg/dl Calcium 9.6 (8.6-10.3) mg/dl Magnesium 1.8 (1.7-2.4) mg/dl Total Bilirubin 0.7 (0.2-1.0) mg/dl AST 42 H (13-39) U/L ALT 26 (7-52) U/L Alkaline Phosphatase 90 (34-104) U/L Total Creatine Kinase 549 H (30-223) U/L Total Protein 7.3 (6.0-8.3) gm/dl Albumin 4.4 (3.4-5.0) gm/dl Globulin 2.9 (2.5-4.0) gm/dl Albumin/Globulin Ratio 1.5 (0.9-2) Urine Color Yellow Urine Appearance Clear (Clear) Urine pH 8.5 H (4.5-7.5) POC Urine pH 7 (4.5-7.5) Ur Specific [place] 1.008 (1.000-1.030) Urine Protein Negative (Negative) POC Urine Protein Negative (Negative) Urine Glucose (UA) Negative (Negative) POC Ur Glucose (UA) Normal (Normal) Urine Ketones Negative (Negative) POC Urine Ketones Negative (Negative) Urine Blood Negative (Negative) POC Urine Blood Negative (Negative) Urine Nitrite Negative (Negative) POC Urine Nitrite Negative (Negative) Urine Bilirubin Negative (Negative) POC Urine Bilirubin Negative (Negative) Urine Urobilinogen Negative (Negative) POC Urine Urobilinogen Normal (Normal) Ur Leukocyte Esterase Negative (Negative) POC U Leukocyte Esteras Negative (Negative) Ur Random Creatinine 52.8 mg/dl Ur Random Sodium 54 mmol/L Urine Comment MDM Narrative Physical exam and history were performed. Nursing notes, EMR, and Medication List were personally reviewed. No social concerns were identified as barriers to patients care. History was provided by the Patient. Patient appears to have recent history of acute kidney injury. He had been admitted to the facility, things improved, and was discharged. His kidney function is trending up. IV access was established and labs were obtained. He was hydrated 2 L normal saline. Patient was seen during a period of very high ER volume and acuity with extended wait times. Nursing protocol order have been performed and some of these are available for my review at the time of patient encounter. Patient's blood work is as above and was reviewed. He does not have a significant elevated white blood cell count or gross anemia. Creatinine increased from 1.44-2.29. BUN is 30. Potassium is 5.2. CK was performed and is elevated at 549, which may support some mild rhabdomyolysis. Case was discussed with my attending, and escalation of care is felt to be necessary. Patient was discussed with the on-call hospitalist team, who agreed to evaluate the patient here in the ER. Please see their dictation for further patient course, plan, disposition. The chart was completed utilizing [employer] Voice Recognition Software. Grammatical errors, random word insertions, pronoun errors, and incomplete sentences are an occasional consequence of this system due to software limitations, ambient noise, and hardware issues. Any formal questions or concerns about the content, text, or information contained within the body of this dictation should be directly addressed to the provider for clarification. Impression & Plan Acute kidney injury Discharge Plan Visit Data Chief Complaint: Flank Pain Stated Complaint: KIDNEY FAILURE ED Provider: Vadim Leiva ED Midlevel Provider: Honorio Kirby Discharge Problem: Acute kidney injury Patient Disposition: Admitted As Inpatient Condition: Fair Forms Stand Alone Forms: My [facility] Prescriptions Prescriptions: No Action amlodipine 5 mg tablet 5 mg PO DAILY labetalol 200 mg tablet 800 mg PO BID ondansetron HCl 4 mg tablet 4 mg PO Q8H PRN (Reason: nausea and vomiting) Qty: 9 0RF omeprazole 20 mg tablet,delayed release (DR/EC) 20 mg PO DAILY Qty: 30 0RF Referrals Referrals: Rhonda Jackson DO [Primary Care Provider] -
[2024-08-10 23:06] LABS: Magnesium 1.8 mg/dl (1.7-2.4)
[2024-08-11 03:06] VITALS: RESP 16
[2024-08-11] MEDS ORDERED: MELATONIN 3 MG TAB PO PRN (03:57)
[2024-08-11] MEDS ORDERED: DOCUSATE SODIUM 100 MG CAP PO PRN (03:57)
[2024-08-11] MEDS ORDERED: ONDANSETRON INJ 2 MG/ML 2 ML VIAL IV PRN (03:57)
[2024-08-11] MEDS ORDERED: ACETAMINOPHEN 325 MG TAB PO PRN (03:57)
[2024-08-11] MEDS ORDERED: SODIUM CHLORIDE 0.9% 1,000 ML IV SCH (04:00)
--- NOTE | 2024-08-11 04:06 | Ultrasound Report ---
Exam(s): US RENAL EXAM: US Retroperitoneal Complete, Renal CLINICAL HISTORY: Flank Pain TECHNIQUE: Real-time complete ultrasound of the retroperitoneum with image documentation. COMPARISON: Multiple CT abdomen and pelvis examinations the most recent 08/02/2024 FINDINGS: Other vasculature: There is a right cystic lesion with internal nodule with vascular flow. Right kidney: Unremarkable. The right kidney measures 10.4 cm. No hydronephrosis. No visualized nephrolithiasis. Left kidney: Unremarkable. No stones. No hydronephrosis. The left kidney measures 10.9 cm. Bladder: Unremarkable as visualized. IMPRESSION: 1. No acute finding of the kidneys. 2. There is a right cystic lesion with internal nodule with vascular flow. Malignancy needs to be excluded. Recommend further evaluation with renal mass protocol CT or MRI on a nonemergent basis. Electronically signed by: Belinda Pradhan MD 08/11/24 04:05 AM
[2024-08-11] MEDS: SODIUM CHLORIDE 0.9% 1,000 ML IV SCH (04:15)
[2024-08-11 05:05] LABS: Hematocrit (blood only) 34.4 % (42.0-52.0); Hemoglobin 11.9 g/dl (14.0-18.0); Immature Granulocytes # (auto) 0.04 K/uL (0.01-0.20); Immature Granulocytes % (auto) 0.6 %; Mean Corpuscular Hemoglobin 27.7 pg (25.0-34.0); Mean Corpuscular Volume 80.2 fL (80.0-100.0); Platelet Count 211 K/uL (130-400); RDW Standard Deviation 37.2 fL (36.4-46.3); Red Blood Count 4.29 M/uL (4.70-6.10); White Blood Count 7.02 K/ul (4.8-10.8)
[2024-08-11 05:20] LABS: Anion Gap 6.0 (3-11); Blood Urea Nitrogen 28.0 mg/dl (6-23); Calcium 8.9 mg/dl (8.6-10.3); Carbon Dioxide 24.0 mmol/L (21-32); Chloride 103.0 mmol/L (98-107); Creatine Kinase 315.0 U/L (30-223); Creatinine Clr Calc Pharmacy 60.1 ml/min; Glucose 98.0 mg/dl (70-99(Fasting)); Magnesium 1.8 mg/dl (1.7-2.4); Potassium 4.6 mmol/L (3.5-5.1); Sodium 133.0 mmol/L (136-145)
[2024-08-11] MEDS: LABETALOL HCL 200 MG TAB PO SCH (09:37)
--- NOTE | 2024-08-11 10:26 | Nephrology Consultation ---
Date of Consultation August 11, 2024 Assessment & Plan (1) Acute kidney injury: Non-oliguric. Creatinine downtrending (2.29-->1.87 mg/dL). Baseline creatinine ~1.4 mg/dL. Urine analysis bland. Renal US did not demonstrate evidence of obstruction. Clinical presentation prerenal ROBB. Continue IVF to encourage positive fluid balance. IVF may be stopped once creatinine returns to baseline CK of 500 u/L is not sufficient enough to explain ROBB. I would not expect ROBB at this level without additional risk factors. Medications are appropriate for kidney function. Document strict I/Os. Discharge with outpatient nephrology follow up would be acceptable once creatinine returns to baseline. (2) Hyperkalemia: Improved with IVF. Low potassium diet. Kidney function improving. (3) Hyponatremia: Mild, chronic, asymptomatic. Hypovolemic. Improving with istotonic fluids. (4) Kidney laceration: Records from [facility] [place] requested. Imaging reviewed, including renal US + non-con CT from July + CT from March. I have reached out to the radiologist books salesperson and am waiting a return call. I cannot exclude development of a vascular abnormality such as AVF formation. There is no apparent urinoma or significant hematoma at this time. Follow up imaging with CT or MRI is encouraged. I would encourage urology follow up in this regard. Venous thrombosis is less likely and there is no apparent injury to renal artery but follow up evaluation with renal duplex may be considered. I am waiting to hear back from radiology and I would suggest close follow up with urology. (5) Renal cyst: Right kidney. Dr. Pradhan has recommended further evaluation with renal protocol CT or MRI on nonemergent basis in her report. (6) HTN (hypertension): BP acceptable. Volume status improving. Relatively euvolemic. Remains on amlodipine 5 mg daily and labetalol 800 mg BID per home Rx. History of Present Illness Reason for Consultation: ROBB on CKD,recurrent Requesting Physician: Karen Grace MD Attending Physician: Karen Grace MD History of Present Illness Jose Miguel Frausto is a 29 year-old male with hypertension and a history of splenic laceration + kidney laceration (2024) who was referred to the ER at [facility] yesterday by his PCP with laboratory studies demonstrating ROBB and electrolyte abnormalities. ROS also notable for bilateral flank pain, L>R. Serum creatinine is downtrending 2.29 mg/dL-->1.87 mg/dL. Potassium has normalized (5.2 mmol/L-->4.8 mmol/L). Sodium 129-->133 mmol/L. Jose Miguel was found to be volume depleted on admission. Treatment has included IV NSS. Nephrology consultation requested for recurrent ROBB/CKD. Jose Miguel was recently admission to [facility] from August 02- with ROBB (creatinine 3.5 mg/dL-->1.4 mg/dL) attributed to dehydration. He presented with symptoms of a viral syndrome. Kidney function improved with IVF during this admission. Urine was bland and acellular and kidneys unobstructed on imaging. 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 Serum creatinine was 1.49 mg/dL at that time. CT demonstrated a residual small hematoma between the left kidney and left psoas (3.5 cm and decreasing in size). Non-contrast CT in July demonstrated continued resolution of the hematoma. Renal US obtained yesterday demonstrated minimal evidence of this hematoma. A right renal cyst with an internal nodule with vascular flow is seen. Urine analysis is bland. Jose Miguel is afebrile. CK slightly elevated at 549 on admission is tending d ownward. Jose Miguel was admitted to [facility] in February with a laceration of the spleen and laceration of the left kidney after being kicked by a horse. Records from [facility] were not available for review at this time. Records from [facility] indicate a grade 3 laceration of the kidney but also suggest that there was extravasation of contrast (typically grade 4). Jose Miguel told me that surgical intervention was discussed but ultimately deemed unnecessary. Follow up was arranged with his PCP. Jose Miguel has a history of hypertension which has been controlled with amlodipine and labetalol. He denies any fluid retention or edema. He denies fevers or chills. He has no urinary symptoms. Jose Miguel reports some mild chronic/persistent L>R flank/back pain. Symptoms have been present for the past couple of weeks. He recently started a new job in [employer] and is outside on hot days doing very heavy lifting. He denies any recent trauma or injury. He denies any recent nausea or diarrhea. Appetite is good. He reports drinking lots of fluids. He states that he feels well at this time and would really like to go home today. He told me that he is happy to maintain close outpatient follow up. Allergies Allergy/AdvReac Type Severity Reaction Status Date / Time No Known Allergies Allergy Verified 08/09/24 10:27 Home Medications Medication Instructions Recorded Confirmed Type amlodipine 5 mg tablet 5 mg PO DAILY 08/01/24 08/10/24 History labetalol 200 mg tablet 800 mg PO BID 08/01/24 08/10/24 History omeprazole 20 mg tablet,delayed 20 mg PO DAILY #30 tabs 08/01/24 08/10/24 Rx release ondansetron HCl 4 mg tablet 4 mg PO Q8H PRN nausea and 08/01/24 08/10/24 Rx vomiting #9 tabs Patient History Medical History (Updated 08/11/24 @ 11:05 by Naveen Kelly DO) Kidney laceration Spleen laceration Social History Smoking Status: Never smoker Second Hand Exposure: No; Do You Dip or Chew Tobacco: No; Hx Alcohol Use: No Hx Substance Use: No Preferred Language: Greenlandic Communication Ability: Effective Controls Technician Required: No Beliefs That Will Affect Care: None Current Living Situation: Significant Other Other Information That Helps Us Care for You: No Feels Safe at Home: Yes Safety Concerns: Feels Safe At This Time Assistive Devices: None Review of Systems Review of Systems: All systems reviewed & are unremarkable except as noted in HPI & below Physical Exam Constitutional: well developed; no acute distress Eyes: + anicteric sclerae ENMT: Mouth: oral mucous membranes not dry Neck: normal visual inspection Respiratory: normal respiratory effort; no respiratory distress Cardiovascular: Rate/Rhythm: regular rate Extremities: no edema Musculoskeletal: Spine: lumbar spine normal to inspection; no pain with thoraco-lumbar ROM, no thoracic spinal tenderness, no lumbar spinal tenderness and no paraspinal tenderness Extremities: no cyanosis and no clubbing Skin: no ecchymosis Neurologic: Motor/Sensory: no tremor and no asterixis Psychiatric: Orientation: alert and oriented x 3 Genitourinary: no CVA tenderness Results & Data Vital Signs (Past 12 Hours) Vital Signs Temp Pulse Pulse Pulse Resp BP BP 08/11/24 08:15 36.5 C 59 L 16 144/84 H 08/11/24 07:05 36.6 C 66 16 117/60 08/11/24 06:00 56 L 16 147/92 H 08/11/24 05:00 54 L 16 126/63 08/11/24 04:19 52 L 16 133/69 08/11/24 03:00 77 16 124/65 08/11/24 01:28 59 L 08/11/24 01:00 84 18 137/91 08/10/24 23:00 78 18 134/84 Pulse Ox O2 Del Method 08/11/24 08:15 100 Room Air 08/11/24 07:05 98 Room Air 08/11/24 06:00 96 Room Air 08/11/24 05:00 95 Room Air 08/11/24 04:19 98 Room Air 08/11/24 03:00 97 Room Air 08/11/24 01:28 08/11/24 01:00 98 Room Air 08/10/24 23:00 97 Room Air Laboratory Results Laboratory Results - last 24 hr 08/10/24 08/10/24 08/11/24 20:49 20:59 04:43 WBC 9.22 7.02 RBC 4.69 L 4.29 L Hgb 13.1 L 11.9 L Hct 36.9 L 34.4 L MCV 78.7 L 80.2 MCH 27.9 27.7 MCHC 35.5 34.6 RDW Std Deviation 36.3 L 37.2 RDW Coeff of Kayli 13.0 13.1 Plt Count 276 211 MPV 10.1 9.8 Immature Gran % (Auto) 0.7 0.6 Neut % (Auto) 58.0 53.0 Lymph % (Auto) 28.4 31.5 [place] % (Auto) 8.5 10.3 Eos % (Auto) 3.7 4.0 Baso % (Auto) 0.7 0.6 Neut # (Auto) 5.36 3.73 Lymph # (Auto) 2.62 2.21 [place] # (Auto) 0.78 H 0.72 H Eos # (Auto) 0.34 0.28 Baso # (Auto) 0.06 0.04 Immature Gran # (Auto) 0.06 0.04 Sodium 129 L 133 L Potassium 5.2 H 4.6 Chloride 94 L 103 Carbon Dioxide 27 24 Anion Gap 8 6 BUN 30 H 28 H Creatinine 2.05 H 1.87 H Est Cr Clr Drug Dosing 54.8 60.1 eGFR 44.15 49.30 BUN/Creatinine Ratio 14.6 15.0 Glucose 93 98 Calcium 9.6 8.9 Magnesium 1.8 1.8 Total Bilirubin 0.7 AST 42 H ALT 26 Alkaline Phosphatase 90 Total Creatine Kinase 549 H 315 H Total Protein 7.3 Albumin 4.4 Globulin 2.9 Albumin/Globulin Ratio 1.5 Urine Color Yellow Urine Appearance Clear Urine pH 8.5 H POC Urine pH 7 Ur Specific [place] 1.008 Urine Protein Negative POC Urine Protein Negative Urine Glucose (UA) Negative POC Ur Glucose (UA) Normal Urine Ketones Negative POC Urine Ketones Negative Urine Blood Negative POC Urine Blood Negative Urine Nitrite Negative POC Urine Nitrite Negative Urine Bilirubin Negative POC Urine Bilirubin Negative Urine Urobilinogen Negative POC Urine Urobilinogen Normal Ur Leukocyte Esterase Negative POC U Leukocyte Esteras Negative Ur Random Creatinine 52.8 Ur Random Sodium 54 Urine Comment Anti-Streptolysin O Ab Pending Diagnostic Findings US Retroperitoneal Complete, Renal: 08/10/24 COMPARISON: Multiple CT abdomen and pelvis examinations the most recent 08/02/2024 FINDINGS: Other vasculature: There is a right cystic lesion with internal nodule with vascular flow. Right kidney: Unremarkable. The right kidney measures 10.4 cm. No hydronephrosis. No visualized nephrolithiasis. Left kidney: Unremarkable. No stones. No hydronephrosis. The left kidney measures 10.9 cm. Bladder: Unremarkable as visualized. IMPRESSION: 1. No acute finding of the kidneys. 2. There is a right cystic lesion with internal nodule with vascular flow. Malignancy needs to be excluded. Recommend further evaluation with renal mass protocol CT or MRI on a nonemergent basis. CT of the abdomen and pelvis performed without contrast: 08/02/24 COMPARISON: 04/05/2024 FINDINGS: Lower chest: No consolidation. No pleural effusion or pneumothorax. Liver: No suspicious liver lesions. Gallbladder: No gallstones. No evidence of acute cholecystitis. Spleen: Normal size. Pancreas: No suspicious pancreatic lesions. The pancreatic duct is not dilated. Adrenal glands: No adrenal nodules. Kidneys: No hydronephrosis or obstructing renal stones. Bladder / Pelvic organs: Unremarkable. Bowel: No bowel obstruction. No abnormal bowel wall thickening. The appendix is unremarkable. Mild to moderate colonic stool burden. Lymph nodes: No retroperitoneal, mesenteric, or pelvic lymphadenopathy. Peritoneum / Retroperitoneum: No free fluid or air within the abdomen. Vessels: No infrarenal aortic aneurysm. Bones and soft tissues: No suspicious lesion in the bones. Healing callus of a left rib 11 fracture seen on prior. IMPRESSION: NoAcute intra-abdominal finding. PG Care Time/CCT Total # of Minutes Spent Total Time Spent with Patient: Total time spent is greater than 50% in coordination of care (as documented) at patient's floor/unit and/or counseling patient: Coding Level of Care Code 56244 IN/OBS CONSULT LVL 5,80M Diagnoses Acute kidney injury N17.9 Hyperkalemia E87.5 Hyponatremia E87.1 Kidney laceration S37.039A Renal cyst N28.1 HTN (hypertension) I10
[2024-08-11 15:57] VITALS: BP 122/71; PULSE 66; TEMP 98.4; O2SAT 98
[2024-08-11 16:12] LABS: Anion Gap 5.0 (3-11); Blood Urea Nitrogen 25.0 mg/dl (6-23); Calcium 8.8 mg/dl (8.6-10.3); Carbon Dioxide 22.0 mmol/L (21-32); Chloride 109.0 mmol/L (98-107); Creatinine Clr Calc Pharmacy 68.1 ml/min; Glucose 103.0 mg/dl (70-99(Fasting)); Potassium 5.4 mmol/L (3.5-5.1); Sodium 136.0 mmol/L (136-145)
[2024-08-11] MEDS: SODIUM ZIRCONIUM CYCLOSILICATE 10 GM PACKET PO ONE (16:52)
--- NOTE | 2024-08-11 16:58 | Discharge Summary ---
Discharge Summary Date of Service August 11, 2024 Principal Dx & Hospital Course #1 = Principal Diagnosis (1) Acute kidney injury: (2) Hyperkalemia: (3) Hyponatremia: (4) CKD (chronic kidney disease) stage 3, GFR 30-59 ml/min: Plan Patient is a 29-year-old male with past medical history of hypertension, CKD stage II-III, GERD, and recent admission for ROBB from 08/02 to 08/04 suspected to be secondary to dehydration. Patient was referred by his PCP after he had outpatient labs which revealed worsening renal function-creatinine increased from 1.44 to 2.29. Patient is also complaining of bilateral flank pain, L>R which has been ongoing. He was admitted for an ROBB. #mild rhabdomyolysis/ROBB/Hyperkalemia/hyponatremia - Cr increased 1.44 to 2.29, BUN 30, K+ 5.2, Na 129. UA appears noninfectious. 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 Repeat CK the next day down to 315. Suspect ROBB secondary to hypovolemia/dehydration as creatinine improved to 1.6 with IV fluid hydration. He is not taking NSAIDs or any other nephrotoxic medications. Baseline creatinine seems to be around 1.4 at least in the [facility] labs system. Renal ultrasound did show a right renal cyst with nodular center with vascular flow and CT A/P shows resolving hematoma near the left kidney. There was no obstruction on imaging. FeNa calculated at 1.6% which was indeterminate. His potassium was elevated at 5.2 and did improved to 4.6 but then worsened again to 5.4 and repeat lab draw. - Appreciate nephrology consultation-he will need close outpatient follow-up -Lokelma x 1 dose given on the day of discharge - Follow low potassium diet-education given - Antistreptolysin level sent and pending - Patient requested Lyme titer since he had a fever a few weeks ago and wonders if this caused his kidney problems-doubtful this is related but did order Lyme titer which is pending at the time of discharge - Follow BMP on 08/14 as an outpatient with labs to be sent to PCP and nephrology - Encouraged him to drink plenty of fluids daily, more fluid than he had been d sal previously - Follow-up with urology as an outpatient for right renal mass-urology can determine best imaging at that time CT versus MRI #HTNBPs well-controlled - Continue amlodipine and labetalol #GERDcontinue PPI which she actually takes as needed VTE ppx: SCDs Dispo: Discharged home on 08/11 Admission HPI Per Admitting Provider Patient is a 29-year-old male with past medical history of hypertension and recent admission for ROBB from 08/02 to 08/04 suspected to be secondary to dehydration. Patient was referred by his PCP after he had outpatient labs yesterday which revealed worsening renal function, creatinine increased from 1.44-2.29. Patient is also complaining of bilateral flank pain, L>R. He is being admitted for an ROBB. Patient seen at bedside with his girlfriend present. He stated he has been relatively asymptomatic and was sent in by his PCP, however upon further questioning patient has had bilateral flank pain today that is constant and burning, L>R. He stated the pain is a 3/10 at its worst. He denies any dysuria, difficulty urinating, hematuria, decrease in urinary output today. He denies any history of previous nephrolithiasis. He stated he has been trying to drink a lot of fluids at home after his last ROBB and denies any recent nausea, vomiting, diarrhea, or fevers. He has been taking his home medications and took them today. He wishes to be full code. Patient reevaluated at bedside after CK returned at 549. 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 He has tried to drink lots of fluids and Gatorade. Discharge Exam Constitutional WD/WN, vitals as above Neck trachea midline, no thyromegaly Respiratory normal respiratory effort, lungs clear to auscultation Cardiovascular RRR, no murmur, no edema Chest (Breasts) Chest: normal inspection of chest Gastrointestinal (Abdomen) normal bowel sounds, soft, nontender, no hepatosplenomegaly Musculoskeletal Extremities: extremities normal to inspection; no cyanosis and no clubbing Skin no rashes, warm and dry Neurologic moves all extremities and awake; no focal motor deficits Psychiatric A+Ox3, euthymic affect Lymphatic no lymphedema Discharge Plan Discharge Items Patient Disposition: Home - Self-Care Reason For Visit: ROBB Discharge Diagnosis: Acute kidney injury on CKD stage 2-3 Hyperkalemia (high potassium) Condition on Discharge: Good Activity: Resume your previous activity Non-emergency contact: Primary Care Provider and Draftsperson Call non-emergency contact if: you have any medication questions Follow-up/Referrals: Naveen Kelly DO [Physician] - (Dr. Kelly's office will arrange follow-up for you in the next couple of weeks and let you know the date and time of the appointment) Rhonda Jackson DO [Primary Care Provider] - (Follow-up within 1 to 2 weeks) Diet: Low Potassium (2gm) Diet Comment: Drink plenty of fluids Ambulatory Orders: Basic Metabolic Panel (Routine) Timeframe: 3 Days Location: Determined by Patient Ordered By: Karen Greenberg Attending Provider Instructions: You are admitted with kidney failure and high potassium levels related to dehydration in the setting of chronic kidney disease. Please drink more fluid than you had been previously and eat a low potassium diet. Please have your blood work drawn on Wednesday, 08/14 with the results sent to your PCP and your model builder display for review. Do not take any NSAIDs as we discussed such as Motrin, Aleve, naproxen, Advil. Pending Studies at Discharge: Yes (Lyme disease test, ASO titer) Stand-Alone Forms: My [facility] Medications and DC Order Prescriptions: Continued amlodipine 5 mg tablet 5 mg PO DAILY labetalol 200 mg tablet 800 mg PO BID ondansetron HCl 4 mg tablet 4 mg PO Q8H PRN (Reason: nausea and vomiting) Qty: 9 0RF omeprazole 20 mg tablet,delayed release (DR/EC) 20 mg PO DAILY Qty: 30 0RF Discharge Orders: Discharge Order (Routine); Ordered 08/11/24 Ordered By: Karen Christensen/Other Patient Handouts: Low Potassium Diet Dc, ED Diet for Chronic Kidney Disease Admission Data Admit Date/Time: 08/10/24 22:51 Attending Provider: Karen Grace Admit Provider: Srinivas Morton Primary Care Provider: Rhonda Jackson Other Providers: Naveen Kelly; Srinivas Morton Hospital Stay Data Consultations 08/10/24 22:43 ED Decision to Admit Stat 08/11/24 09:51 Consult Nephrology Routine Diagnostic Imagining Performed 08/10/24 22:40 US Renal Bladder [US renal/blad retro comp] Stat Pending Results Patient Have Any Pending Studies at Discharge: Yes (Lyme disease test, ASO titer) Discharge Instructions Given to Patient (Per Discharging Provider) You are admitted with kidney failure and high potassium levels related to dehydration in the setting of chronic kidney disease. Please drink more fluid than you had been previously and eat a low potassium diet. Please have your blood work drawn on Wednesday, 08/14 with the results sent to your PCP and your model builder display for review. Do not take any NSAIDs as we discussed such as Motrin, Aleve, naproxen, Advil. Total Time Total Time Spent Total Time Spent (In Minutes): 35 minutes Total Time Includes: Examination of the Patient, Discharge Planning, Medication Reconciliation and Communication With Other Providers (Nephrology) Coding Level of Care Code 41865 INP/OBS DISCH >30 MIN Diagnoses Acute kidney injury N17.9 Hyperkalemia E87.5 Hyponatremia E87.1 CKD (chronic kidney disease) stage 3, GFR 30-59 ml/min N18.30
== END 2024-08-11 17:14 | disposition home or self-care (01) ==
LOC: ED 20:18 → EDINP 20:18 → SUATTDRO 22:51 → EDINP 08-11 03:57 → 3E 08-11 08:45